=== PATIENT | male | born 1955 | race Hispanic/Latino ===

== ENCOUNTER 2021-11-24 14:17 | Emergency (ER) | payer OTHER ==
[2021-11-24] MEDS ORDERED: ACETAMINOPHEN 500 MG TAB ONE (14:39)
--- NOTE | 2021-11-24 15:24 | RAD REPORT ---
EXAM DESCRIPTION: CT - CTHCSPWOC - 11/24/2021 3:01 pm CLINICAL HISTORY: fallposterior head injury, head and neck pain COMPARISON: No comparisons TECHNIQUE: Axial 5 mm thick images of the head were obtained. Axial 2 mm thick images of the cervic al spine were obtained with sagittal and coronal reconstruction images generated and reviewed. All CT scans are performed using dose optimization technique as appropriate and may include automated exposure control or mA/KV adjustment according to patient size. FINDINGS: No intracranial hemorrhage, mass, edema or acute intracranial finding. No suspicion for ac tian infarction. No extra-axial fluid collections. Mastoid air cells and paranasal sinuses are clear. No globe or orbit abnormality seen. Arterial tree calcifications are present. Ventricles are normal. No measurable atrophy or chronic ischemic change. Small posterior scalp hematoma is present. Cervical bodies are normal in height. No subluxation abnormality. There is reversal of the usual cerv ical lordosis which may be muscle spasm affects or positioning artifact. Mild endplate spurring beltre es anteriorly involving C5-C7. No facet joint alignment abnormality. No disk space narrowing. No frac ture or acute bony abnormality. Central canal detail is inherently limited. No paraspinal mass or hematoma. IMPRESSION: Negative CT head examination for acute or significant finding. Negative CT cervical spine examination for acute or significant finding.
--- NOTE | 2021-11-24 15:49 | RAD REPORT ---
EXAM DESCRIPTION: RAD - Foot Left 3 View - 11/24/2021 2:45 pm CLINICAL HISTORY: PAIN COMPARISON: No comparisons FINDINGS: No fracture, dislocation or periosteal reaction. No acute or destructive bony process. Mi ld degenerative spurring seen at the tibiotalar joint space. Small plantar spur is also noted. First MTP joint shows mild joint space narrowing without erosive component. Minimal marginal spurs are seen . No acute midfoot abnormality seen though there are mild degenerative changes along the articular ma rgins of the tarsal bones. No air or foreign body in the soft tissues. IMPRESSION: Left foot degenerative changes are present as detailed. No acute bone or joint finding.
--- NOTE | 2021-11-24 16:32 | EDPHYS ---
Physician Documentation [facility] Name: Paige Crane Age: 66 yrs Sex: Male : 1955 Arrival Date: 11/24/2021 Time: 14:24 Bed 2 Private MD: ED Physician Delta Vela HPI: 11/24 14:45 This 66 yrs old Male presents to ER via EMS with complaints of Fall Injury. cp 14:45 Details of fall: The patient fell from a height, down approximately 5 stairs, and cp struck a concrete surface. Onset: The symptoms/episode began/occurred just prior to arrival. Associated injuries: The patient sustained injury to the head, contusion, left foot, painful injury. Patient reports he helping carry washer up stairs when he lost balance fell backward and stumbled down stairs and then landed onto back and hitting back of head against ground. Patient reports washer struck left foot. Patient denies LOC. Historical: - Allergies: 14:30 Iodine; jl7 - Home Meds: 14:30 citalopram oral [Active]; Crestor oral [Active]; hydrochlorothiazide Oral [Active]; jl7 Synjardy oral [Active]; - PMHx: 14:30 Diabetes mellitus; jl7 - Immunization history:: Client reports receiving the 2nd dose of the Covid vaccine. - Social history:: Smoking status: Patient denies any tobacco usage or history of. ROS: 14:50 Constitutional: Negative for body aches, chills, fever, poor PO intake. cp 14:50 Eyes: Negative for injury, pain, redness, and discharge. cp 14:50 Neck: Negative for pain with movement, pain at rest, stiffness. 14:50 Cardiovascular: Negative for chest pain, palpitations. 14:50 Respiratory: Negative for cough, shortness of breath, wheezing. 14:50 Abdomen/GI: Negative for abdominal pain, nausea, vomiting, and diarrhea. 14:50 Back: Negative for pain at rest, pain with movement. 14:50 MS/extremity: Positive for pain, swelling, tenderness, of the left foot, Negative for decreased range of motion, deformity, paresthesias. 14:50 Neuro: Positive for headache, Negative for altered mental status, dizziness, loss of consciousness, syncope, weakness. 14:50 All other systems are negative. Exam: 14:55 Constitutional: The patient appears in no acute distress, alert, awake, cp non-diaphoretic, non-toxic, well developed, well nourished, obese. 14:55 Head/face: Noted is contusion, that is superficial, of the posterior scalp, swelling, cp that is mild, tenderness, that is mild. 14:55 Eyes: Periorbital structures: appear normal, Pupils: equal, round, and reactive to light and accomodation, Extraocular movements: intact throughout, Conjunctiva: normal, no exudate, no injection, Sclera: no appreciated abnormality, Lids and lashes: appear normal, bilaterally. 14:55 ENT: External ear(s): are unremarkable, Ear canal(s): are normal, clear, TM's: dullness, bilaterally, Nose: is normal, Mouth: Lips: moist, Oral mucosa: pink and intact, moist, Posterior pharynx: Airway: no evidence of obstruction, patent. 14:55 Neck: C-spine: vertebral tenderness, is not appreciated, crepitus, is not appreciated, ROM/movement: is normal, is supple, without pain, no range of motions limitations. 14:55 Chest/axilla: Inspection: normal, Palpation: is normal, no crepitus, no tenderness. 14:55 Cardiovascular: Rate: tachycardic. 14:55 Respiratory: the patient does not display signs of respiratory distress, Respirations: normal, no use of accessory muscles, no retractions, labored breathing, is not present. 14:55 Abdomen/GI: Inspection: obese Palpation: abdomen is soft and non-tender, in all quadrants. 14:55 Back: pain, is absent, ROM is normal, vertebral tenderness, is not appreciated. 14:55 Musculoskeletal/extremity: Extremities: grossly normal except: noted in the left foot: pain, swelling, tenderness, There is no evidence of decreased ROM, deformity, Pulses: noted to be 2+ in the left dorsalis pedis artery, the left foot Sensation intact. 14:55 Neuro: Orientation: to person, place \T\ time. Mentation: is normal, Motor: moves all fours, strength is normal, Sensation: no obvious gross deficits. Vital Signs: 14:24 BP 128 / 85; Pulse 104; Resp 17; Temp 98.1; Pulse Ox 97% on R/A; Weight 145.15 kg; jl7 Height 5 ft. 7 in. (170.18 cm); Pain 7/10; 16:12 BP 113 / 74; Pulse 74; Resp 15; Pulse Ox 95% ; jl7 14:24 Body Mass Index 50.12 (145.15 kg, 170.18 cm) jl7 Solange Coma Score: 14:55 Eye Response: spontaneous(4). Verbal Response: oriented(5). Motor Response: obeys cp commands(6). Total: 15. MDM: 14:30 Patient medically screened. cp 15:00 Differential diagnosis: closed head injury, contusion, fracture, laceration, multiple cp trauma. 15:43 Test interpretation: by ED physician or midlevel provider: xrays of right foot negative cp for fracture. 16:30 Data reviewed: vital signs, nurses notes, radiologic studies, CT scan, plain films. cp 16:30 Counseling: I had a detailed discussion with the patient and/or guardian regarding: the cp historical points, exam findings, and any diagnostic results supporting the discharge/admit diagnosis, radiology results, to return to the emergency department if symptoms worsen or persist or if there are any questions or concerns that arise at home. Response to treatment: the patient's symptoms have markedly improved after treatment, and as a result, I will discharge patient. Special discussion: Based on the patient's history, exam and DX evaluation, there is no indication for emergent intervention or inpatient TX. It is understood by the patient/guardian that if the SXs persist or worsen they need to return immediately for re-evaluation. 11/24 14:32 Order name: XRAY Foot LEFT 3 View; Complete Time: 16:00 cp 11/24 16:00 Interpretation: Reviewed report. cp 11/24 14:32 Order name: CT Head C Spine; Complete Time: 15:29 cp Administered Medications: 14:37 Drug: Tylenol 1000 mg Route: PO; jl7 15:15 Follow up: Response: No adverse reaction; Pain is decreased jl7 Disposition: 11/25 07:20 Co-signature as Attending Physician, Delta Vela MD I agree with the assessment and kdr plan of care. Disposition Summary: 11/24/21 16:31 Discharge Ordered Location: Home cp Problem: new cp Symptoms: have improved cp Condition: Stable cp Diagnosis - Fall (on) (from) other stairs and steps cp - Pain in left foot cp - Contusion of left foot cp - Contusion of unspecified part of head, initial encounter cp Followup: cp - With: Private Physician - When: 2 - 3 days - Reason: Recheck today's complaints Discharge Instructions: - Discharge Summary Sheet cp - Foot Contusion cp - Facial or Scalp Contusion cp - Head Injury, Adult cp Forms: - Medication Reconciliation Form cp - Thank You Letter cp - Antibiotic Education cp - Prescription Opioid Use cp Prescriptions: - Ibuprofen 800 mg Oral Tablet - take 1 tablet by ORAL route every 8 hours As needed take with food; 30 tablet; cp Refills: 0, Product Selection Permitted Signatures: Dispatcher [employer] EDMS Delta Vela MD MD kdr Page, Corey, PA PA cp Leal, Jahala RN RN jl7 Corrections: (The following items were deleted from the chart) 11/24 14:31 14:30 Allergies: No Known Allergies; jl7 jl7 11/25 02:14 11/24 14:45 Patient reports he helping carry washer up stairs when he lost balance fell cp backward and stumbled down stairs and then landed onto back and hitting back of head against ground. Patient reports washer struck left foot. cp
--- NOTE | 2021-11-24 16:32 | ER ---
Nurse's Notes [facility] Name: Paige Crane Age: 66 yrs Sex: Male : 1955 Arrival Date: 11/24/2021 Time: 14:24 Bed 2 Private MD: Diagnosis: Fall (on) (from) other stairs and steps;Pain in left foot;Contusion of left foot;Contusion of unspecified part of head, initial encounter Presentation: 11/24 14:24 Chief complaint: EMS states: Pt moving a washer up some stairs and it slipped causing jl7 him to fall backwards from about 5 steps up, did hit the posterior aspect of head on ground, did not loose consciousness. Reports soreness and left foot pain and pain to posterior scalp. Coronavirus screen: At this time, the client does not indicate any symptoms associated with coronavirus-19. Ebola Screen: No symptoms or risks identified at this time. Initial Sepsis Screen: Does the patient meet any 2 criteria? No. Patient's initial sepsis screen is negative. Does the patient have a suspected source of infection? No. Patient's initial sepsis screen is negative. Risk Assessment: Do you want to hurt yourself or someone else? Patient reports no desire to harm self or others. Onset of symptoms was November 24, 2021. Care prior to arrival: Glucose check: 182. 14:24 Method Of Arrival: EMS: [facility] 14:24 Acuity: TONI 3 jl7 Triage Assessment: 14:30 General: Appears in no apparent distress. uncomfortable, Behavior is calm, cooperative, jl7 appropriate for age. Pain: Complains of pain in scalp and left foot Pain currently is 7 out of 10 on a pain scale. Neuro: Level of Consciousness is awake, alert, obeys commands, Oriented to person, place, time, situation. Cardiovascular: Denies chest pain, Patient's skin is warm and dry. Respiratory: Airway is patent Respiratory effort is even, unlabored, Respiratory pattern is regular, symmetrical, Denies shortness of breath. Derm: Skin is pink, warm \T\ dry. Musculoskeletal: Swelling absent Tenderness is absent. Injury Description: Abrasion sustained to scalp. Historical: - Allergies: 14:30 Iodine; jl7 - Home Meds: 14:30 citalopram oral [Active]; Crestor oral [Active]; hydrochlorothiazide Oral [Active]; jl7 Synjardy oral [Active]; - PMHx: 14:30 Diabetes mellitus; jl7 - Immunization history:: Client reports receiving the 2nd dose of the Covid vaccine. - Social history:: Smoking status: Patient denies any tobacco usage or history of. Screenin:30 Abuse screen: Denies threats or abuse. Denies injuries from another. Nutritional jl7 screening: No deficits noted. Tuberculosis screening: No symptoms or risk factors identified. Fall Risk None identified. Assessment: 16:13 Reassessment: Patient appears in no apparent distress at this time. Patient and/or jl7 family updated on plan of care and expected duration. Pain level reassessed. Patient is alert, oriented x 3, equal unlabored respirations, skin warm/dry/pink. Patient states feeling better. Patient states symptoms have improved. Vital Signs: 14:24 BP 128 / 85; Pulse 104; Resp 17; Temp 98.1; Pulse Ox 97% on R/A; Weight 145.15 kg; jl7 Height 5 ft. 7 in. (170.18 cm); Pain 7/10; 16:12 BP 113 / 74; Pulse 74; Resp 15; Pulse Ox 95% ; jl7 14:24 Body Mass Index 50.12 (145.15 kg, 170.18 cm) jl7 Solange Coma Score: 14:55 Eye Response: spontaneous(4). Verbal Response: oriented(5). Motor Response: obeys cp commands(6). Total: 15. ED Course: 14:24 Patient arrived in ED. jl7 14:24 Negrito Son PA is PHCP. cp 14:24 Delta Vela MD is Attending Physician. cp 14:30 Triage completed. jl7 14:30 Arm band placed on right wrist. jl7 14:30 Patient has correct armband on for positive identification. Placed in gown. Bed in low jl7 position. Call light in reach. Side rails up X 1. Pulse ox on. NIBP on. 14:37 Carrie Gan RN is Primary Nurse. jl7 14:47 XRAY Foot LEFT 3 View In Process Unspecified. EDMS 15:02 CT Head C Spine In Process Unspecified. EDMS 16:45 No provider procedures requiring assistance completed. Patient did not have IV access jl7 during this emergency room visit. Administered Medications: 14:37 Drug: Tylenol 1000 mg Route: PO; jl7 15:15 Follow up: Response: No adverse reaction; Pain is decreased jl7 Outcome: 16:31 Discharge ordered by . zaynab 16:45 Discharged to home ambulatory, with family. jl7 16:45 Condition: stable 16:45 Discharge instructions given to patient, Instructed on discharge instructions, follow up and referral plans. medication usage, Demonstrated understanding of instructions, follow-up care, medications, Prescriptions given X 1. 17:10 Patient left the ED. jl7 Signatures: Dispatcher [employer] EDMS Negrito Son PA PA cp Leal, Jahala, RN RN jl7 Corrections: (The following items were deleted from the chart) 14:31 14:30 Allergies: No Known Allergies; jl7 jl7
[2021-11-24 17:15] VITALS: TEMP 98.1
[2021-11-24 17:16] VITALS: BP 113/74; O2SAT 95
== END 2021-11-24 17:10 | disposition home or self-care (01) ==
LOC: ER 14:17
DX: S00.83XA Contusion of other part of head, initial encounter (principal); S90.32XA Contusion of left foot, initial encounter; M79.672 Pain in left foot; W10.9XXA Fall (on) (from) unspecified stairs and steps, initial encounter; E11.9 Type 2 diabetes mellitus without complications; Z91.048 Other nonmedicinal substance allergy status
CPT/HCPCS: 70450; 72125; 99284

== ENCOUNTER 2024-03-25 11:23 | Emergency (ER) | payer OTHER ==
--- OUTSIDE RECORDS SUMMARY | 2024-03-25 11:26 | XMS REPORT | Continuity of Care Document ---
Author Name Unknown Address [address] [facility] [address] [place] [address] [facility] Address [address] [facility] [address] [place] [address] Care Team Providers Care Precision Dancer Name Role Phone Marlyn Hutchins Attending Clinician Unavail able Payers Payer Name Policy Type Policy Number Effective Date Expirati on Date Source Cigna Preferred [facility] [id number] [facility] Problems Condition Name Condition Details Condition Category Status Onset Date Resolution Date Last Treatment Date Treating Clinician Comments Source [id number] Straining to void Problem [facility] [id number] Essential hypertensi on Problem [facility] [id number] Obesity, Class III, BMI 40-49.9 (morbid obesity) Problem [facility] [id number] Benign prostatic hyperplasi a with lower urinary tract symptoms Problem [facility] [id number] 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, without long-term current use of insulin Problem [facility] [id number] Primary osteoarthr itis of right knee Problem [facility] Morbid obesity (disorder) Morbid (severe) obesity due to excess calories Problem [facility] [id number] Other chronic pain Problem [facility] [id number] KEATON (generaliz ed anxiety disorder) Problem [facility] [id number] Mixed hyperlipid emia Problem [facility] [id number] Vitamin D deficiency Problem [facility] [id number] DANNIE (obstructi ve sleep apnea) Problem [facility] Allergies, Adverse Reactions, Alerts Allergy Name Allergy Type Status Severity Reaction(s) Onset Date Inactive Date Treating Clinician Comments Source [id number] Drug allergy Active Unknown [facility] Social History Social Habit Start Date Stop Date Quantity Comments Source History of Tobacco Use [facility] Sex Assigned At [facility] Smoking Status Start Date Stop Date Source Former Smoker 2024-02-24 00:00:00 2024-02-24 00:00:00 [facility] Medications Ordered Medication Name Filled Medication Name Start Date Stop Date Current Medication? Ordering Clinician Indication Dosage Frequency Signature (SIG) Comments Components Source Cyanocobala min Cyanocobala min 3-19 00:00: 00 No 1000ug [facility] Vitamin B12 1000 MCG Vitamin B12 1000 MCG 3-13 00:00: 00 No 1{table t} QD Vitamin B12 1000 MCG Losartan Potassium 25 MG Losartan Potassium 25 MG 2-08 00:00: 00 No 1{table t} QD Losartan Potassium 25 MG Aspirin 81 81 MG Aspirin 81 81 MG No 1{table t} QD Aspirin 81 81 MG Citalopram Hydrobromid e 40 MG Citalopram Hydrobromid e 40 MG No .5{tabl et} QD Citalopram Hydrobromi de 40 MG hydroCHLORO thiazide 25 MG hydroCHLORO thiazide 25 MG No 1{table t_in_ e_morni ng} QD hydroCHLOR Othiazide 25 MG Rosuvastati n Calcium 40 MG Rosuvastati n Calcium 40 MG No 1{table t} QD Rosuvastat in Calcium 40 MG metFORMIN HCl 1000 MG metFORMIN HCl 1000 MG No 1{table t_with_ a_meal} QD metFORMIN HCl 1000 MG Tamsulosin HCl 0.4 MG Tamsulosin HCl 0.4 MG No 1{capsu le} QD Tamsulosin HCl 0.4 MG Pioglitazon e HCl 30 MG Pioglitazon e HCl 30 MG No 1{table t} QD Pioglitazo ne HCl 30 MG Gabapentin 300 MG Gabapentin 300 MG No 1{capsu le} BID Gabapentin 300 MG Immunizations Ordered Immunization Name Filled Immunization Name Date Status Comments Source Fluarix (IIV4) - SDS - 0.5mL Fluarix (IIV4) - SDS - 0.5mL Unknown Completed [facility] TDAP TDAP Unknown Completed [facility] Prevnar 13 (PCV) Prevnar 13 (PCV) Unknown Completed [facility] Fluarix (IIV4) - SDS - 0.5mL Fluarix (IIV4) - SDS - 0.5mL Unknown Completed [facility] TDAP TDAP Unknown Completed [facility] Prevnar (PCV) Prevnar 13 (PCV) Unknown Completed [facility] Fluarix (IIV4) - SDS - 0.5mL Fluarix (IIV4) - SDS - 0.5mL Unknown Completed [facility] Shingrix Shingrix Unknown Completed [facility] Twinrix Twinrix Unknown Completed [facility] TDAP TDAP Unknown Completed [facility] Prevnar 13 (PCV13) Prevnar 13 (PCV) Unknown Completed [facility] Fluarix (IIV4) - SDS - 0.5mL Fluarix (IIV4) - SDS - 0.5mL Unknown Completed [facility] Shingrix Shingrix Unknown Completed [facility] Twinrix Twinrix Unknown Completed [facility] TDAP TDAP Unknown Completed [facility] Prevnar 13 (PCV) Prevnar 13 (PCV) Unknown Completed [facility] Fluarix (IIV4) - SDS - 0.5mL Fluarix (IIV4) - SDS - 0.5mL Unknown Completed [facility] Shingrix Shingrix Unknown Completed [facility] Twinrix Twinrix Unknown Completed [facility] TDAP TDAP Unknown Completed Common [facility] Prevnar 13 (PCV13) Prevnar 13 (PCV13) Unknown Completed [facility] Fluarix (IIV4) - SDS - 0.5mL Fluarix (IIV4) - SDS - 0.5mL Unknown Completed [facility] Shingrix Shingrix Unknown Completed Common [facility] Twinrix Twinrix Unknown Completed [facility] rit [facility] TDAP TDAP Unknown Completed [facility] Prevnar 13 (PCV13) Prevnar 13 (PCV13) Unknown Completed [facility] Fluarix (IIV4) - SDS - 0.5mL Fluarix (IIV4) - SDS - 0.5mL Unknown Completed [facility] Shingrix Shingrix Unknown Completed [facility] rit [facility] Twinrix Twinrix Unknown Completed [facility] rit [facility] TDAP TDAP Unknown Completed [facility] Prevnar 13 (PCV13) Prevnar 13 (PCV13) Unknown Completed [facility] Fluarix (IIV4) - SDS - 0.5mL Fluarix (IIV4) - SDS - 0.5mL Unknown Completed [facility] Shingrix Shingrix Unknown Completed [facility] - [facility] Twinrix Twinrix Unknown Completed [facility] rit [facility] TDAP TDAP Unknown Completed [facility] rit [facility] Prevnar 13 (PCV13) Prevnar 13 (PCV13) Unknown Completed [facility] Fluarix (IIV4) - SDS - 0.5mL Fluarix (IIV4) - SDS - 0.5mL Unknown Completed [facility] TDAP TDAP Unknown Completed [facility] Prevnar 13 (PCV) Prevnar 13 (PCV) Unknown Completed [facility] Fluarix (IIV4) - SDS - 0.5mL Fluarix (IIV4) - SDS - 0.5mL Unknown Completed [facility] TDAP TDAP Unknown Completed [facility] Prevnar 13 (PCV) Prevnar 13 (PCV) Unknown Completed [facility] Fluarix (IIV4) - SDS - 0.5mL Fluarix (IIV4) - SDS - 0.5mL Unknown Completed [facility] TDAP TDAP Unknown Completed [facility] Prevnar (PCV) Prevnar 13 (PCV) Unknown Completed [facility] Fluarix (IIV4) - SDS - 0.5mL Fluarix (IIV4) - SDS - 0.5mL Unknown Completed [facility] TDAP TDAP Unknown Completed [facility] Prevnar () Prevnar () Unknown Completed [facility] Vital Signs Vital Name Observation Time Observation Value Comments S ource height 2024-02-23 14:30:00 66 [in_i] Commo n [facility] weight 2024-02-23 14:30:00 304 [lb_av] Comm on [facility] temperature 2024-02-23 14:30:00 97.6 [degF] Com mon [facility] bmi 2024-02-23 14:30:00 49.06 kg/m2 Comm on [facility] blood pressure systolic 2024-02-23 14:30:00 136 mm[Hg] Common [facility] blood pressure diastolic 2024-02-23 14:30:00 84 mm[Hg] Common [facility] height 2024-01-12 08:00:00 66 [in_i] Commo n [facility] weight 2024-01-12 08:00:00 306 [lb_av] Comm on [facility] temperature 2024-01-12 08:00:00 98 [degF] Comm on [facility] bmi 2024-01-12 08:00:00 49.38 kg/m2 Comm on [facility] oximetry 2024-01-12 08:00:00 92 % Commo n [facility] respiratory rate 2024-01-12 08:00:00 17 /min Common [facility] blood pressure systolic 2024-01-12 08:00:00 109 mm[Hg] [facility] blood pressure diastolic 2024-01-12 08:00:00 53 mm[Hg] Common [facility] height 2023-10-14 14:40:00 66 [in_i] Commo n [facility] weight 2023-10-14 14:40:00 299 [lb_av] Comm on [facility] temperature 2023-10-14 14:40:00 98.3 [degF] Com mon [facility] bmi 2023-10-14 14:40:00 48.25 kg/m2 Comm on [facility] oximetry 2023-10-14 14:40:00 91 % Commo n [facility] respiratory rate 2023-10-14 14:40:00 16 /min Common [facility] blood pressure systolic 2023-10-14 14:40:00 110 mm[Hg] Common [facility] blood pressure diastolic 2023-10-14 14:40:00 58 mm[Hg] [facility] height 2023-10-14 14:30:00 66 [in_i] Commo n [facility] weight 2023-10-14 14:30:00 299 [lb_av] Comm on [facility] temperature 2023-10-14 14:30:00 98.3 [degF] Com mon [facility] bmi 2023-10-14 14:30:00 48.25 kg/m2 Comm on [facility] oximetry 2023-10-14 14:30:00 91 % Commo n [facility] respiratory rate 2023-10-14 14:30:00 16 /min Common [facility] blood pressure systolic 2023-10-14 14:30:00 110 mm[Hg] [facility] blood pressure diastolic 2023-10-14 14:30:00 58 mm[Hg] [facility] height 2023-09-04 10:40:00 66 [in_i] Commo n [facility] weight 2023-09-04 10:40:00 293 [lb_av] Comm on [facility] temperature 2023-09-04 10:40:00 98.1 [degF] Com [facility] bmi 2023-09-04 10:40:00 47.29 kg/m2 Comm on [facility] oximetry 2023-09-04 10:40:00 94 % Commo n [facility] respiratory rate 2023-09-04 10:40:00 18 /min [facility] blood pressure systolic 2023-09-04 10:40:00 122 mm[Hg] [facility] blood pressure diastolic 2023-09-04 10:40:00 58 mm[Hg] [facility] height 2023-07-30 10:00:00 66 [in_i] Commo n [facility] weight 2023-07-30 10:00:00 302 [lb_av] Comm on [facility] temperature 2023-07-30 10:00:00 98.2 [degF] Com [facility] bmi 2023-07-30 10:00:00 48.74 kg/m2 Comm on [facility] oximetry 2023-07-30 10:00:00 93 % Commo n [facility] respiratory rate 2023-07-30 10:00:00 16 /min [facility] blood pressure systolic 2023-07-30 10:00:00 127 mm[Hg] [facility] blood pressure diastolic 2023-07-30 10:00:00 61 mm[Hg] [facility] Encounters Start Date/Time End Date/Time Encounter Type Admission Type Attending [facility] Facility Care Department Encounter ID Source 2024-02-23 14:38:00 Outpatient Marlyn Hutchins STLMLC STLMLC [id number] [facility] 2024-01-13 10:13:01 Outpatient Marlyn Hutchins STLMLC STLMLC [id number] [facility] 2024-01-08 13:16:00 Outpatient Marlyn Hutchins STLMLC STLMLC [id number] [facility] 2023-12-02 10:03:01 Outpatient Marlyn Hutchins STLMLC STLMLC [id number] [facility] 2023-09-02 13:35:00 Outpatient Marlyn Hutchins STLMLC STLMLC [id number] [facility] 2023-08-28 08:53:01 Outpatient Marlyn Hutchins STLMLC STLMLC [id number] [facility] 2023-07-01 09:52:00 Outpatient Marlyn Hutchins STLMLC STLMLC [id number] [facility] 2024-02-23 00:00:00 2024-02-23 00:00:00 OFFICE VISIT NEW PT LEVEL 4 STLMLC STLMLC [id number] [facility] 2024-02-23 00:00:00 2024-02-23 00:00:00 (TEL) STLMLC STLMLC [id number] [facility] 2024-01-13 00:00:00 2024-01-13 00:00:00 (TEL) STLMLC STLMLC [id number] [facility] 2024-01-12 00:00:00 2024-01-12 00:00:00 OFFICE VISIT ESTAB PT LEVEL 4 STLMLC STLMLC [id number] [facility] 2023-12-29 00:00:00 2023-12-29 00:00:00 (TEL) STLMLC STLMLC [id number] [facility] 2023-12-10 00:00:00 2023-12-10 00:00:00 (TEL) STLMLC STLMLC [id number] [facility] 2023-11-24 00:00:00 2023-11-24 00:00:00 (TEL) STLMLC STLMLC [id number] [facility] 2023-10-15 00:00:00 2023-10-15 00:00:00 (TEL) STLMLC STLMLC [id number] [facility] 2023-10-14 00:00:00 2023-10-14 00:00:00 OFFICE VISIT ESTAB PT LEVEL 4 STLMLC STLMLC [id number] [facility] 2023-10-14 00:00:00 2023-10-14 00:00:00 SUB ANNUAL [facility] VISIT STLMLC STLMLC [id number] [facility] 2023-10-01 00:00:00 2023-10-01 00:00:00 (TEL) STLMLC STLMLC [id number] [facility] 2023-09-04 00:00:00 2023-09-04 00:00:00 OFFICE VISIT ESTAB PT LEVEL 4 STLMLC STLMLC [id number] [facility] 2023-09-02 00:00:00 2023-09-02 00:00:00 (TEL) STLMLC STLMLC [id number] [facility] 2023-08-04 00:00:00 2023-08-04 00:00:00 (TEL) STLMLC STLC [id number] [facility] 2023-08-04 00:00:00 2023-08-04 00:00:00 (TEL) STLMLC STLMLC [id number] [facility] 2023-07-30 00:00:00 2023-07-30 00:00:00 [facility] [id number] [facility] Results Test Description Test Time Test Comments Results Result Co mments Source HEMOGLOBIN [id number] 00:00:00* Test Item Value Reference Range Interpretation Comme nts A1C (test code = 4548-4) 5.9
[2024-03-25] MEDS ORDERED: KETOROLAC 30 MG/ML INJ ONE (11:44)
--- NOTE | 2024-03-25 12:24 | RAD REPORT ---
EXAM DESCRIPTION: US - Lower Extremity Artery Uni Ltd - 03/25/2024 12:14 pm CLINICAL HISTORY: PAIN COMPARISON: No comparisons FINDINGS: Right lower extremity arterial system was interrogated using Doppler technique. There is a large calcified plaque is seen right common femoral artery causing 50% stenosis approximat matias. Right lower extremity demonstrates triphasic waveforms throughout. No complete occlusion is seen . IMPRESSION: Focal, large calcific plaque is present mid right common femoral artery, however, withou t significant distal flow disruption. No occlusion is evident.
--- NOTE | 2024-03-25 13:12 | RAD REPORT ---
EXAM DESCRIPTION: USExtzuly Venous Uni Ltd03/25/2024 12:14 pm CLINICAL HISTORY: Right leg pain COMPARISON: None. FINDINGS: Right common femoral, superficial femoral, greater saphenous, popliteal and right posterio r tibial veins are compressible and demonstrate augmentation. Doppler demonstrates good flow. Grayscale, color and spectral analysis performed on all vessels IMPRESSION: No evidence of deep venous thrombosis involving the right lower extremity.
--- NOTE | 2024-03-25 13:58 | ER ---
Nurse's Notes [facility] Name: Paige Crane Age: 69 yrs Sex: Male : 1955 Arrival Date: 03/25/2024 Time: 11:23 Bed 11 Private MD: Diagnosis: Pain in right leg Presentation: 03/25 11:30 Chief complaint: Patient states: sharp pain in right thigh. At night it hurts so much I tm6 jump off the bed. Has been going on for about a week and a half. Coronavirus screen: Vaccine status: Patient reports receiving the 2nd dose of the covid vaccine. Ebola Screen: Patient negative for fever greater than or equal to 101.5 degrees Fahrenheit, and additional compatible Ebola Virus Disease symptoms Patient denies exposure to infectious person. Patient denies travel to an Ebola-affected area in the 21 days before illness onset. No symptoms or risks identified at this time. Initial Sepsis Screen: Does the patient meet any 2 criteria? No. Patient's initial sepsis screen is negative. Does the patient have a suspected source of infection? No. Patient's initial sepsis screen is negative. Risk Assessment: Do you want to hurt yourself or someone else? Patient reports no desire to harm self or others. Onset of symptoms was March 15, 2024. 11:30 Method Of Arrival: Ambulatory tm6 11:30 Acuity: TONI 3 tm6 Triage Assessment: 11:31 General: Appears uncomfortable, Behavior is calm, cooperative. Pain: Complains of pain tm6 in right quadriceps Pain does not radiate. Pain currently is 8 out of 10 on a pain scale. Quality of pain is described as burning, throbbing, Pain began 1.5 weeks ago. EENT: No signs and/or symptoms were reported regarding the EENT system. Neuro: Level of Consciousness is awake, alert, obeys commands, Oriented to person, place, time, situation. Cardiovascular: No deficits noted. Patient's skin is warm and dry. Respiratory: Airway is patent Respiratory effort is even, unlabored, Respiratory pattern is regular, symmetrical. GI: No signs and/or symptoms were reported involving the gastrointestinal system. Abdomen is flat, non-distended. : No signs and/or symptoms were reported regarding the genitourinary system. Derm: No signs and/or symptoms reported regarding the dermatologic system. Musculoskeletal: Reports pain in right leg since 1.5 weeks ago. Pain is 8 out of 10 on a pain scale. Historical: - Allergies: 11:31 Iodine; tm6 - PMHx: 11:31 diabetes mellitus; tm6 - PSHx: 11:31 bilateral knee surgery (diabetes mellitus ); carpal tunnel surgery (diabetes mellitus tm6 ); rotator cuff (diabetes mellitus ); - Immunization history:: Client reports receiving the 2nd dose of the Covid vaccine. - Infectious Disease History:: Denies. - Social history:: Smoking status: Patient/guardian denies using tobacco, the patient reports quitting approximately 20 years ago, Patient uses alcohol, occasionally. - Family history:: not pertinent. - Hospitalizations: : No recent hospitalization is reported. Screenin:49 [facility] ED Fall Risk Assessment (Adult) History of falling in the last 3 months, ll1 including since admission No falls in past 3 months (0 pts) Confusion or Disorientation No (0 pts) Intoxicated or Sedated No (0 pts) Impaired Gait Yes (1 pt) Mobility Assist Device Used No (0 pt) Altered Elimination No (0 pt) Score/Fall Risk Level 0 - 2 = Low Risk Maintained a safe environment, Hourly rounding (assess needs \T\ fall precautionary measures) done. Abuse screen: Denies threats or abuse. Nutritional screening: No deficits noted. Tuberculosis screening: No symptoms or risk factors identified. Assessment: 11:49 General: Appears uncomfortable, Behavior is calm, cooperative, appropriate for age. ll1 Pain: Complains of pain in right leg Pain currently is 8 out of 10 on a pain scale. Quality of pain is described as aching, throbbing. Musculoskeletal: Circulation, motion, and sensation intact. Capillary refill < 3 seconds, Reports pain in right leg. 14:05 Reassessment: No changes from previously documented assessment. Patient and/or family ll1 updated on plan of care and expected duration. Pain level reassessed. Patient is alert, oriented x 3, equal unlabored respirations, skin warm/dry/pink. Vital Signs: 11:29 Resp 18; Temp 97.4(TE); Weight 138.8 kg; Height 5 ft. 7 in. ; Pain 8/10; tm6 11:30 BP 118 / 59; Pulse 82; Pulse Ox 95% on R/A; tm6 14:05 BP 118 / 59; Pulse 81; Resp 18; Pulse Ox 96% on R/A; Pain 3/10; ll1 11:29 Body Mass Index 47.93 (138.80 kg, 170.18 cm) tm6 11:29 Pain Scale: Adult tm6 14:05 Pain Scale: Adult ll1 ED Course: 11:26 Patient arrived in ED. mr 11:27 Doc Salgado MD is Attending Physician. rn 11:31 Triage completed. tm6 11:31 Arm band placed on right wrist. tm6 11:41 Srinivas Montano, RN is Primary Nurse. rs5 11:50 Patient has correct armband on for positive identification. Bed in low position. ll1 Provided Education on: ER procedures and process. Cardiac monitoring not applicable on this patient. 12:16 Extremity Venous Uni Ltd US In Process Unspecified. EDMS 12:16 Lower Extremity Artery Uni Ltd US In Process Unspecified. EDMS 12:19 Disha Nielson RN is Primary Nurse. ll1 14:05 No provider procedures requiring assistance completed. Patient did not have IV access ll1 during this emergency room visit. Administered Medications: 11:49 Drug: Ketorolac IM 15 mg IM once Route: IM; Site: right vastus lateralis; ll1 14:05 Follow up: Response: No adverse reaction; Pain is decreased; RASS: Alert and Calm (0) ll1 Medication: 11:50 VIS not applicable for this client. ll1 Outcome: 13:58 Discharge ordered by . rn 14:05 Patient left the ED. ll1 14:05 Discharged to home ambulatory, ll1 14:05 Condition: stable 14:05 Discharge instructions given to patient, Instructed on discharge instructions, follow up and referral plans. no drinking with medication, no driving heavy equipment, medication usage, Demonstrated understanding of instructions, follow-up care, medications, Prescriptions given X 2, Signatures: Dispatcher [employer] EDMS Carmen Schaefer, Reg Reg Doc Salgado MD MD rn Lewis, Lynsay, RN RN ll1 Srinivas Montano, RN RN rs5 Deshawn Bocanegra RN RN tm6
--- NOTE | 2024-03-25 13:58 | EDPHYS ---
Physician Documentation [facility] Name: Paige Crane Age: 69 yrs Sex: Male : 1955 Arrival Date: 03/25/2024 Time: 11:23 Bed 11 Private MD: ED Physician Doc Salgado HPI: 03/25 13:55 This 69 yrs old Male presents to ER via Ambulatory with complaints of Leg Pain.rn 13:55 The patient presents with pain. The complaints affect the medial aspect of right thigh. rn Onset: The symptoms/episode began/occurred 2 week(s) ago. Modifying factors: The symptoms are alleviated by nothing. the symptoms are aggravated by nothing. Severity of symptoms: At their worst the symptoms were moderate, in the emergency department the symptoms are unchanged. The patient has experienced similar episodes in the past. Patient reports seen by PCP recently and told had nerve problem with his right leg. Has been experiencing pain right mid thigh. Does not recall injury or trauma. No swelling. No history of DVT. No known arterial insufficiency. Reports burning sensation along with tingling and pain. Does not feel like it radiates from the back.. Historical: - Allergies: 11:31 Iodine; tm6 - PMHx: 11:31 diabetes mellitus; tm6 - PSHx: 11:31 bilateral knee surgery (diabetes mellitus ); carpal tunnel surgery (diabetes mellitus tm6 ); rotator cuff (diabetes mellitus ); - Immunization history:: Client reports receiving the 2nd dose of the Covid vaccine. - Infectious Disease History:: Denies. - Social history:: Smoking status: Patient/guardian denies using tobacco, the patient reports quitting approximately 20 years ago, Patient uses alcohol, occasionally. - Family history:: not pertinent. - Hospitalizations: : No recent hospitalization is reported. ROS: 13:55 Constitutional: Negative for fever, chills, and weight loss, Cardiovascular: Negative rn for chest pain, palpitations, and edema, Respiratory: Negative for shortness of breath, cough, wheezing, and pleuritic chest pain, MS/Extremity: Positive for right thigh pain Skin: Negative for rash Neuro: Positive for paresthesias to the right thigh, negative for weakness Exam: 13:55 Constitutional: This is a well developed, well nourished patient who is awake, alert, rn and in no acute distress. Cardiovascular: Regular rate and rhythm. No pulse deficits. Back: No back tenderness Skin: No rash or discoloration MS/ Extremity: Strong distal pulse, no cyanosis, no swelling, no focal tenderness, equal circumference Vital Signs: 11:29 Resp 18; Temp 97.4(TE); Weight 138.8 kg; Height 5 ft. 7 in. ; Pain 8/10; tm6 11:30 BP 118 / 59; Pulse 82; Pulse Ox 95% on R/A; tm6 14:05 BP 118 / 59; Pulse 81; Resp 18; Pulse Ox 96% on R/A; Pain 3/10; ll1 11:29 Body Mass Index 47.93 (138.80 kg, 170.18 cm) tm6 11:29 Pain Scale: Adult tm6 14:05 Pain Scale: Adult ll1 MDM: 11:28 Patient medically screened. rn 13:55 Differential diagnosis: Radiculopathy, neuropathy, DVT, arterial insufficiency, rn peripheral arterial disease. Data reviewed: vital signs, nurses notes, radiologic studies, ultrasound, and as a result, I will discharge patient. Counseling: I had a detailed discussion with the patient and/or guardian regarding the historical points, exam findings, and any diagnostic results supporting the discharge/admit diagnosis, radiology results, the need for outpatient follow up, to return to the emergency department if symptoms worsen or persist or if there are any questions or concerns that arise at home. Special discussion: I discussed with the patient/guardian in detail that at this point there is no indication for admission to the hospital. It is understood, however, that if the symptoms persist or worsen the patient needs to return immediately for re-evaluation. 03/25 11:40 Order name: Extremity Venous [facility] rn 03/25 11:40 Order name: Lower Extremity Artery [employer] [facility] rn Administered Medications: 11:49 Drug: Ketorolac IM 15 mg IM once Route: IM; Site: right vastus lateralis; ll1 14:05 Follow up: Response: No adverse reaction; Pain is decreased; RASS: Alert and Calm (0) ll1 Disposition Summary: 03/25/24 13:58 Discharge Ordered Notes: Location: Home rn Problem: an ongoing problem rn Symptoms: have improved rn Condition: Stable rn Diagnosis - Pain in right leg rn Followup: rn - With: Private Physician - When: As needed - Reason: Recheck today's complaints, Re-evaluation by your physician Discharge Instructions: - Discharge Summary Sheet rn - Neuropathic Pain rn - Peripheral Neuropathy rn Forms: - Medication Reconciliation Form rn - Antibiotic international relations teacher - Prescription Opioid Use rn - Patient Portal Instructions rn - Leadership Thank You Letter rn Prescriptions: - Cyclobenzaprine 10 mg Oral tablet - take 1 tablet ORAL route every 8-12 hours As needed; 15 tablet; Refills: 0, rn Product Selection Permitted - Diclofenac Sodium 75 mg Oral tablet, delayed release (enteric coated) - take 1 tablet ORAL route 2 times per day; 14 tablet; Refills: 0, Product rn Selection Permitted Signatures: Dispatcher [employer] EDDoc Cain MD MD rn Lewis, Lynsay RN RN ll1 Deshawn Bocanegra RN RN tm6
[2024-03-25 14:22] VITALS: TEMP 97.4
[2024-03-25 14:23] VITALS: BP 118/59; O2SAT 95
== END 2024-03-25 14:05 | disposition home or self-care (01) ==
LOC: ER 11:23
DX: M79.604 Pain in right leg (principal); E11.9 Type 2 diabetes mellitus without complications
CPT/HCPCS: 93926; 93971; 96372; 99284